=== PATIENT | male | born 1975 | race American Indian/Alaskan Native ===

== ENCOUNTER 2020-06-05 12:07 | Outpatient (CLI) | payer OTHER ==
[2020-06-05 13:26] LABS: ABG Base Excess 0.8 mmol/L (-2.0-3.0); ABG HCO3 26.5 mmol/L (20.0-26.0); ABG Methemoglobin 0.5 % (0.0-1.5); ABG PCO2 46.3 mm Hg; ABG PH 7.376 pH Units (7.350-7.450)
[2020-06-05 13:33] LABS: Hematocrit 43.9 % (35.5-45.6); Hemoglobin 15.1 gm/dl (11.8-15.2); Mean Corpuscular HGB Conc 35 % (32-34); Mean Corpuscular Volume 78 fl (84-94); Platelet Count 275 K/mm3 (140-440); Red Blood Count 5.66 M/mm3 (3.65-5.03); Red Cell Distribution Width 13.6 % (13.2-15.2)
[2020-06-05 14:47] LABS: Alanine Aminotransferase 20 units/L (7-56); Albumin 4.9 g/dL (3.9-5); BUN/Creatinine Ratio 21; Blood Urea Nitrogen 17 mg/dL (9-20); Calcium 9.9 mg/dL (8.4-10.2); Chol/HDL Ratio 3.35 %; Creatine Kinase MB 1.7 ng/mL (0.0-4.0); HDL Cholesterol 51 mg/dL (40-59); Hemolysis Index 4; LDL Cholesterol,Direct 120 mg/dL (50-130)
--- NOTE | 2020-06-05 14:55 | XRay Report ---
CHEST 2 VIEWS INDICATION: CHEST PAIN. COMPARISON: None FINDINGS: Support devices: None. Heart: Within normal limits. Lungs/pleura: No acute air space or interstitial disease. No pneumothorax. Additional findings: Mild scoliosis IMPRESSION: No acute findings. Signer Name: Denver Yip Jr, MD Signed: 06/05/2020 2:50 PM Workstation Name: [id number]
--- NOTE | 2020-06-05 16:19 | Cat Scan Report ---
CTA CHEST WITH CONTRAST INDICATION / CLINICAL INFORMATION: MAIN. TECHNIQUE: Axial CT images were obtained through the chest after injection of 100 cc Omni 350 IV cont rast. 3 plane MIP and/or 3D reconstructions were produced. All CT scans at this location are performe d using CT dose reduction for ALARA by means of automated exposure control. COMPARISON: Chest radiograph 06/05/2020 FINDINGS: PULMONARY ARTERIES: Satisfactory opacification of the pulmonary arteries. No filling defect to sugges t pulmonary embolism. THORACIC AORTA: No significant abnormality. HEART: No significant abnormality. CORONARY ARTERY CALCIFICATION: None. MEDIASTINUM / SARA: No significant abnormality. PLEURA: No pleural effusion. No pneumothorax. LUNGS: No acute air space or interstitial disease. ADDITIONAL FINDINGS: None. UPPER ABDOMEN: No acute findings. SKELETAL STRUCTURES: No significant osseous abnormality. IMPRESSION: 1. No CT evidence for pulmonary embolism. 2. No acute findings. Signer Name: Walter Nina MD Signed: 06/05/2020 4:15 PM Workstation Name: [id number]
== END 2020-06-05 12:08 | disposition home or self-care (01) ==
LOC: CT 12:07
PROVIDERS: ATTEND Internal Medicine
DX: R07.9 Chest pain, unspecified (principal); M41.34 Thoracogenic scoliosis, thoracic region
CPT/HCPCS: 36415; 36600; 71046; 71275; 80053; 80061; 82550; 82553; 82803; 84436; 84443; 84484; 85027; 93005; Q9967

== ENCOUNTER 2020-09-24 00:44 | Emergency (ER) | payer OTHER | END 2020-09-24 00:47 | disposition left against medical advice (07) | LOC: ED 00:44 | DX: I10 Essential (primary) hypertension (principal); Z53.21 Procedure and treatment not carried out due to patient leaving prior to being seen by health care provider ==